=== PATIENT | male | born 1995 | race Two or more races ===

== ENCOUNTER 2019-08-17 21:05 | Emergency (ER) | payer MEDICAID, OTHER ==
[~2019-08-17] VITALS: Ht 170.2 cm; Wt 77.1 kg
[2019-08-17] MEDS ORDERED: MORPHINE SULF INJ 2 MG/ML SYRINGE 1ML ONE (21:27)
[2019-08-17] MEDS ORDERED: ONDANSETRON HCL 4 MG/2 ML VIAL ONE (21:27)
[2019-08-17] MEDS ORDERED: ONDANSETRON HCL 4 MG/2 ML VIAL IV ONE (21:30)
[2019-08-17] MEDS ORDERED: MORPHINE SULFATE 4 MG/ML SYR/VIAL IV ONE (21:30)
[2019-08-17] MEDS ORDERED: cefTRIAXone SOD 1,000 MG VL ONE (21:34)
[2019-08-17] MEDS ORDERED: HYDROmorphone HCL 2 MG/ML VL ONE (21:40)
[2019-08-18] MEDS ORDERED: HYDROmorphone HCL 2 MG/ML VL IV ONE (00:45)
[2019-08-18 00:53] VITALS: BP 135/71
[2019-08-18] MEDS ORDERED: AMMONIA 0.33 ML INHALANT IN ONE (04:51)
== END 2019-08-18 01:04 | disposition short-term general hospital (02) ==
LOC: ER 21:05
DX: S52.601B Unspecified fracture of lower end of right ulna, initial encounter for open fracture type I or II (principal); S15 Injury of blood vessels at neck level; S61.411A Laceration without foreign body of right hand, initial encounter; V87.8XXA Person injured in other specified noncollision transport accidents involving motor vehicle (traffic), initial encounter; Y93.55 Activity, bike riding; Y92.488 Other paved roadways as the place of occurrence of the external cause; Y99.8 Other external cause status
CPT/HCPCS: 73130; 96374; 96375; 99291; J0696; J1170; J2270; J2405